=== PATIENT | female | born 2000 | race Caucasian/White ===

== ENCOUNTER 2020-09-12 15:00 | Observation (INO) ==
[2020-09-12] MEDS ORDERED: Lidocaine -MPF 1% 2 ML VIAL INFILT ONE (15:15)
[2020-09-12 16:00] LABS: Bilirubin,Urine Negative (Negative); Blood,Urine Negative (Negative); Clarity,Urine Clear (Clear); Color,Urine Light-Yellow (Yellow); Glucose,Urine (UA) Normal (Normal); Ketones,Urine 20 mg/dL (Negative); Leukocyte Esterase,Urine Negative (Negative); Nitrite,Urine Negative (Negative); Protein,Urine Negative (Neg-Trace); Urobilinogen,Urine Normal (Normal)
[2020-09-12 16:05] LABS: Basophils % 0.3 %; Eosinophils # 0.1 K/mcL (0.0-0.6); Eosinophils % 0.6 %; Hematocrit 38.9 % (35.3-44.9); Hemoglobin 13.6 g/dL (11.5-15.4); Immature Granulocytes % 0.2 % (0-4); Lymphocytes # 1.1 K/mcL (0.6-4.6); Lymphocytes % 12.1 %; Mean Corpuscular Hemoglobin 30.4 pg (28.0-33.3); Mean Corpuscular Volume 86.8 fL (83.0-100.0); Mean Platelet Volume 10.5 fL (9.4-12.4); Monocytes # 0.5 K/mcL (0.0-1.3); Monocytes % 5.6 %; Neutrophils # 7.7 K/mcL (1.6-8.9); Platelet Count 221 K/mcL (140-400); Red Blood Count 4.48 M/mcL (3.82-4.97); Red Cell Distribution Width 11.8 % (11.5-14.5); Segmented Neutrophils % 81.2 %; White Blood Count 9.4 K/mcL (4.3-11.1)
[2020-09-12 16:18] LABS: Amphetamine Screen,Urine Negative ng/mL (Cutoff=1000); Barbiturate Screen,Urine Negative ng/mL (Cutoff=200); Benzodiazepines Screen,Urine Negative ng/mL (Cutoff=200); Cannabinoid Screen,Urine Positive ng/mL (Cutoff = 50); Cocaine Screen,Urine Negative ng/mL (Cutoff= 300); Opiate Screen,Urine Negative ng/mL (Cutoff=300); Phencyclidine Screen,Urine Negative ng/mL (Cutoff=25)
[2020-09-12 16:22] LABS: Acetaminophen < 10 mcg/mL (10-20); Ethanol < 10 mg/dL (Less than 10); Salicylate < 2.5 mg/dL (15.0-30.0)
[2020-09-12 17:20] LABS: Alanine Aminotransferase 19 Units/L (7-52); Albumin 4.1 g/dL (3.5-5.7); Albumin/Globulin Ratio 1.4 (1.1-2.2); Alkaline Phosphatase 50 Units/L (34-104); Aspartate Amino Transferase 23 Units/L (13-39); BUN/Creatinine Ratio 7 (6-26); Bilirubin,Total 0.6 mg/dL (0.3-1.0); Blood Urea Nitrogen 5 mg/dL (6-20); Calcium 9.2 mg/dL (8.6-10.3); Carbon Dioxide 20 mEq/L (23-29); Chloride 105 mEq/L (98-107); Glucose 90 mg/dL (70-105); Osmolality,Calculated 275 (280-300); Potassium 4.2 mEq/L (3.5-5.1); Sodium 134 mEq/L (136-145); Total Protein 7.1 g/dL (6.4-8.9); eGFR For African Americans > 60; eGFR For Non-African Americans > 60
[2020-09-12] MEDS ORDERED: *HR* LORazepam 1 MG TABLET PO PRN (23:41)
[2020-09-12] MEDS ORDERED: *HR* LORazepam 2 MG/ML VIAL IM PRN (23:41)
[2020-09-12] MEDS ORDERED: Haloperidol Lactate 5 MG/ML VIAL IM PRN (23:41)
[2020-09-12] MEDS ORDERED: traZODone 50 MG TABLET PO PRN (23:41)
[2020-09-12] MEDS ORDERED: haloperidoL 5 MG TABLET PO PRN (23:41)
[2020-09-12] MEDS ORDERED: MOM Conc 10 ML UD.LIQ PO PRN (23:41)
[2020-09-12] MEDS ORDERED: Mag Hydrox/Al Hydrox/Simeth 30 ML UDC PO PRN (23:41)
[2020-09-12] MEDS ORDERED: Ibuprofen 400 MG TABLET PO PRN (23:41)
[2020-09-12] MEDS ORDERED: hydrOXYzine pamoate 25 MG CAPSULE PO PRN (23:41)
[2020-09-13] MEDS: Prenatal Vit/FA 1 EACH TABLET PO SCH (12:48)
[2020-09-13] MEDS ORDERED: Acetaminophen 325 MG TABLET PO PRN (13:15)
[2020-09-14] MEDS: Prenatal Vit/FA 1 EACH TABLET PO SCH (12:19)
[2020-09-14 13:00] VITALS: BP 119/74
== END 2020-09-14 16:30 | disposition home or self-care (01) ==
LOC: 1ANU 15:00 → EMEROOARM 15:00 → 1ANU 09-13 00:28
PROVIDERS: ADMIT Psychiatry & Neurology Forensic Psychiatry; ATTEND Psychiatry & Neurology Forensic Psychiatry

== ENCOUNTER 2021-05-08 | Inpatient (IN) ==
[2021-05-08] MEDS ORDERED: Naloxone 0.4 MG/ML INJ IVP PRN (00:27)
[2021-05-08] MEDS ORDERED: miSOPROStoL 25 MCG TABLET PO PRN (00:27)
[2021-05-08] MEDS ORDERED: Ondansetron 4 MG/2 ML VIAL IVP PRN (00:27)
[2021-05-08] MEDS ORDERED: Metoclopramide 10 MG/2 ML VIAL IVP PRN (00:27)
[2021-05-08] MEDS ORDERED: *HR* Nalbuphine 10 MG/ML AMPUL IV PRN (00:27)
[2021-05-08] MEDS ORDERED: Lidocaine 1% 20 ML MDV INFILT PRN (00:27)
[2021-05-08] MEDS ORDERED: Famotidine 20 MG/2 ML VIAL IVP PRN (00:27)
[2021-05-08 01:08] LABS: Basophils % 0.4 %; Eosinophils # 0.2 K/mcL (0.0-0.6); Hematocrit 34.4 % (35.3-44.9); Hemoglobin 11.3 g/dL (11.5-15.4); Immature Granulocytes % 0.8 % (0-4); Lymphocytes # 1.9 K/mcL (0.6-4.6); Lymphocytes % 20.1 %; Mean Corpuscular HGB Conc 32.8 g/dL (31.6-35.5); Mean Corpuscular Hemoglobin 26.5 pg (28.0-33.3); Mean Corpuscular Volume 80.8 fL (83.0-100.0); Mean Platelet Volume 10.5 fL (9.4-12.4); Monocytes # 0.8 K/mcL (0.0-1.3); Monocytes % 7.8 %; Neutrophils # 6.7 K/mcL (1.6-8.9); Platelet Count 215 K/mcL (140-400); Red Blood Count 4.26 M/mcL (3.82-4.97); Red Cell Distribution Width 14.2 % (11.5-14.5); Segmented Neutrophils % 68.9 %; White Blood Count 9.7 K/mcL (4.3-11.1)
[2021-05-08 01:14] LABS: Amphetamine Screen,Urine Negative ng/mL (Cutoff=1000); Barbiturate Screen,Urine Negative ng/mL (Cutoff=200); Benzodiazepines Screen,Urine Negative ng/mL (Cutoff=200); Cannabinoid Screen,Urine Negative ng/mL (Cutoff = 50); Cocaine Screen,Urine Negative ng/mL (Cutoff= 300); Opiate Screen,Urine Negative ng/mL (Cutoff=300); Phencyclidine Screen,Urine Negative ng/mL (Cutoff=25)
[2021-05-08 01:40] LABS: Influenza A PCR Negative (Negative); Influenza B PCR Negative (Negative); Resp. Syncytial Virus PCR Negative (Negative)
[2021-05-08 01:43] LABS: SARS-CoV-2 by PCR (In House) Negative (Negative)
[2021-05-08] MEDS ORDERED: EPHEDrine 50 MG/ML VIAL IVP PRN (02:54)
[2021-05-08] MEDS: Ringers Solution, Lactated 1,000 ML IVC SCH ×2 (07:46→10:50)
[2021-05-08] MEDS: Epidural Premix (fent/bupiv) 110 ML EP SCH ×2 (10:53→15:11)
[2021-05-08] MEDS ORDERED: Oxytocin 20 units/ LR 1000 mL 20 UNIT/1,000 ML BAG IVC ONE (11:40)
[2021-05-08] MEDS ORDERED: Oxytocin 20 units/ LR 1000 mL 20 UNIT/1,000 ML BAG IVC SCH ×2 (11:45→22:23)
[2021-05-08] MEDS ORDERED: Acetaminophen 325 MG TABLET PO PRN (22:23)
[2021-05-08] MEDS ORDERED: Measles/Mumps/Rubella Vacc 0.5 ML VIAL SQ PRN (22:23)
[2021-05-08 22:29] VITALS: O2SAT 99
[2021-05-08] MEDS: Ibuprofen 600 MG TABLET PO PRN (23:08)
[2021-05-09 06:40] LABS: Basophils % 0.2 %; Eosinophils # 0.1 K/mcL (0.0-0.6); Eosinophils % 1.2 %; Hematocrit 26.9 % (35.3-44.9); Immature Granulocytes % 0.5 % (0-4); Lymphocytes # 1.8 K/mcL (0.6-4.6); Lymphocytes % 15.9 %; Mean Corpuscular HGB Conc 33.8 g/dL (31.6-35.5); Mean Corpuscular Hemoglobin 27.4 pg (28.0-33.3); Mean Platelet Volume 11.2 fL (9.4-12.4); Monocytes # 1.2 K/mcL (0.0-1.3); Monocytes % 10.6 %; Neutrophils # 7.9 K/mcL (1.6-8.9); Platelet Count 155 K/mcL (140-400); Red Blood Count 3.32 M/mcL (3.82-4.97); Red Cell Distribution Width 14.4 % (11.5-14.5); Segmented Neutrophils % 71.6 %
[2021-05-09 06:45] LABS: Hemoglobin 9.1 g/dL (11.5-15.4)
[2021-05-09] MEDS: Ibuprofen 600 MG TABLET PO PRN (07:53)
[2021-05-09 08:02] VITALS: BP 117/74; PULSE 78; TEMP 98.1
[2021-05-09] MEDS ORDERED: Prenatal Vit/FA 1 EACH TABLET PO SCH (09:00)
== END 2021-05-09 15:37 | disposition home or self-care (01) | DRG 560 ==
LOC: 1NENULAB 00:24 → 1NENUOBS 22:23
PROVIDERS: ADMIT Obstetrics & Gynecology; ATTEND Obstetrics & Gynecology